=== PATIENT | female | born 1985 | race Caucasian/White ===

== ENCOUNTER 2022-12-08 18:19 | Emergency (ER) | payer OTHER ==
[~2022-12-08] VITALS: Ht 162.6 cm; Wt 49.9 kg
[2022-12-08] MEDS ORDERED: KETOROLAC TROMETHAMINE INJ 30 MG/ML VIAL IM ONE (19:30)
[2022-12-08] MEDS ORDERED: KETOROLAC TROMETHAMINE INJ 30 MG/ML VIAL ONE (19:52)
[2022-12-08 21:01] LABS: PREGNANCY TEST URINE QUAL NEGATIVE (NEGATIVE)
[2022-12-08] MEDS ORDERED: IBUP-1955 PO (21:23)
[2022-12-08 22:47] VITALS: BP 110/73; TEMP 98.1; O2SAT 100
== END 2022-12-08 22:50 | disposition home or self-care (01) ==
LOC: ER 18:19
DX: R51.9 Headache, unspecified (principal); Z79.899 Other long term (current) drug therapy; V43.32XA Unspecified car occupant injured in collision with other type car in nontraffic accident, initial encounter; Y93.89 Activity, other specified; Y92.89 Other specified places as the place of occurrence of the external cause; Y99.8 Other external cause status
CPT/HCPCS: 99285; 72125; 96372; 70450; 84703; J1885